=== PATIENT | female | born 2000 | race Caucasian/White ===

== ENCOUNTER 2022-02-02 11:05 | Inpatient (IN) | payer OTHER, SELFPAY ==
[2022-02-02] VITALS (19 sets, daily range): BP systolic 92–119; BP diastolic 46–71; PULSE 94–100; RESP 16–18; TEMP 36.3–38.5; O2SAT 76–100; BMI 23.4
--- NOTE | ~2022-02-02 | US_ITS ---
EXAMINATION: US renal BI DATE: 02/03/2022 09:49 INDICATION: right renal abscess TECHNIQUE: Multiple ultrasound grayscale images of the kidneys were obtained. COMPARISON: CT abdomen and pelvis 02/02/2022 FINDINGS: The right kidney measures 12.4 x 4.7 x 5.9 cm. The left kidney measures total 0.3 x 3.6 x 5.0 cm. The kidneys demonstrate normal parenchymal echogenicity. 1.4 cm slightly irregular, slightly heterogeneo us cystic mass in the mid right kidney. There is no hydronephrosis. The bladder is partially filled w ith echogenic debris. IMPRESSION: 1. 1.4 cm complex cystic right midpole mass, corresponding to the reported parenchymal abscess in th e prior CT. 2. Urinary bladder debris may represent proteinaceous, crystalline, or hemorrhagic material. Reviewed, dictated and finalized at location K. IMPRESSION: 1. 1.4 cm complex cystic right midpole mass, corresponding to the reported par enchymal abscess in the prior CT. 2. Urinary bladder debris may represent proteinaceous, crystalline, or hemorrha gic material.
--- NOTE | ~2022-02-02 | CT_ITS ---
EXAMINATION: CT abdomen pelvis w con INDICATION: Right flank pain, fever TECHNIQUE: Computed tomographic images of the abdomen and pelvis were obtained after the administrati on of 100 cc of Omnipaque 300 intravenous contrast. The dose-length product (DLP) was 208.80 mGy-cm. Automated exposure control and iterative reconstruction technique were employed. COMPARISON: None available FINDINGS: The lung bases are clear. The heart size is normal. The liver, pancreas, and adrenal glands are normal. The gallbladder is contracted. There is a 14.5 x 11.5 cm cystic lesion of the spleen. Th ere are multiple patchy areas of decreased perfusion in the right kidney. There is a 1.5 cm centrally hypoattenuating mass like area in the right mid kidney. The left kidney is unremarkable. No patholog ically enlarged abdominal or pelvic lymph nodes are identified. An IUD is in expected position. There is no free intraperitoneal gas or evidence of bowel obstruction. A moderate volume of colonic stool is present. There is a small volume of pelvic ascites. IMPRESSION: 1. Findings consistent with pyelonephritis of the right kidney with 1.5 cm parenchymal abscess of the mid kidney. 2. 14.5 cm cystic lesion of the spleen. Although probable splenic cyst or other benign lesion, consid er nonemergent surgical evaluation given the size of the mass. Reviewed, dictated and finalized at location L. IMPRESSION: 1. Findings consistent with pyelonephritis of the right kidney with 1.5 cm pare nchymal abscess of the mid kidney. 2. 14.5 cm cystic lesion of the spleen. Although probable splenic cyst or other benign lesion, consider nonemergent surgical evaluation given the size of the mass.
--- NOTE | ~2022-02-02 | XR_ITS ---
EXAMINATION: XR chest 1V portable DATE: 02/05/2022 01:31 INDICATION: Left chest pain. TECHNIQUE: A single frontal view of the chest was obtained. COMPARISON: CT abdomen and pelvis 02/02/2022 FINDINGS: The chest demonstrates clear lungs without pneumonia, pleural effusion, or pneumothorax. Th e heart size is normal. IMPRESSION: 1. No acute cardiopulmonary disease. Reviewed, dictated and finalized at location A.
[2022-02-02 11:56] LABS: Basophils Percent Auto 0.1 % (0.2-1.2); Hematocrit 33.1 % (37.0-47.0); Hemoglobin 11.2 g/dL (12.0-15.0); Immature Granulocyte Absolute 0.08 K/mm3 (0.00-0.031); Immature Granulocyte Percent A 0.6 % (0-0.5); Lymphocytes Absolute Auto 0.63 K/mm3 (0.9-3.2); Lymphocytes Percent Auto 4.4 % (18.3-44.2); Mean Corpuscular HGB Conc 33.8 g/dl (32-36); Mean Corpuscular Hemoglobin 29.2 pg (26-34); Mean Corpuscular Volume 86.4 fl (80-100); Mean Platelet Volume 9.5 fl (7.4-10.4); Monocytes Absolute Auto 0.9 K/mm3 (0.1-0.6); Monocytes Percent Auto 6.6 % (2.6-8.5); Neutrophils Absolute Auto 12.7 K/mm3 (1.3-6.7); Neutrophils Percent Auto 88.3 % (45.5-73.1); Platelet Count Result 162 k/mm3 (150-375); Red Blood Count 3.83 M/mm3 (4.2-5.4); Red Cell Distribution Width 14.8 % (11.5-14.5); White Blood Count 14.3 K/mm3 (4.5-10.0)
--- NOTE | 2022-02-02 11:57 | ED.GENADULT ---
HPI - General Adult General Chief complaint: Urogenital-Female Stated complaint: UTI on Saturday - febrile at 104 Time Seen by Provider: 02/02/22 11:19 Source: RN notes reviewed History of Present Illness HPI narrative: Patient presents emergency department from home for UTI. Patient states that she has been having dysuria for the past several days she gone to her PCP 2 days ago was diagnosed with a UTI and was placed on Macrobid which she has been taking. She states that today she had a temperature up to 104 ?F and she did take Tylenol this morning states is associated with pain in the right flank. She denies any abdominal pain nausea or vomiting or any other symptoms has been taking antibiotic as prescribed Related Data Allergies Allergy/AdvReac Type Severity Reaction Status Date / Time No Known Allergies Allergy Verified 02/02/22 11:06 Review of Systems Review of Systems: Gen. reports fever Eyes: Denies eye pain or visual change ENT: Denies congestion Respiratory: Denies shortness of breath or cough CV: Denies chest pain or palpitations repeat reports right flank pain GI: Denies abdominal pain nausea, emesis or diarrhea reports UTI Musculoskeletal: Denies back pain or muscle pain Neuro: Denies numbness, tingling, weakness or focal weakness Skin: Denies rash Except as documented, all other systems reviewed and negative [facility] Past Medical History Medical History (Updated 02/02/22 @ 14:46 by Kody Abreu DO) Patient denies significant medical history Social History Social History (Updated 02/02/22 @ 11:59 by Kody Abreu DO) Smoking status: Never smoker Exam Narrative: APPEARANCE: No acute distress, nontoxic, resting in bed EYES: EOMI HEENT: Normocephalic, atraumatic, OMM RESPIRATORY: No respiratory distress Clear to auscultation bilaterally with no rhonchi wheezing or rales. CARDIOVASCULAR: Regular rate and rhythm without murmurs rubs or gallops. ABDOMINAL: Soft, nontender, nondistended, no rebound or guarding her right flank tenderness MUSCULOSKELETAl: Moves all extremities. No clubbing, cyanosis or edema. NEURO: Awake and alert. Following commands, speech normal, no focal deficits SKIN:: Warm, dry. No rashes lesions or abrasions PSYCHIATRIC: Normal affect/mood, Course Course Emergency Course: Discussed with Dr. Petty presentation work-up states patient may be started on Rocephin agrees to consult Discussed with SEAN Augustine for Dr. Wolf agrees with admission Discussed with patient and family results of workup and diagnosis. Discussed need for admission. Patient and family understand and agree to current treatment plan Vital Signs Vital signs: Vital Signs Temperature 97.4 F L 02/02/22 11:12 Pulse Rate 100 02/02/22 11:12 Respiratory Rate 18 02/02/22 11:12 Blood Pressure 117/71 02/02/22 11:12 Pulse Oximetry 100 02/02/22 11:12 Temperature 99.3 F 02/02/22 14:34 Pulse Rate 100 02/02/22 11:12 Respiratory Rate 18 02/02/22 11:12 Blood Pressure 117/71 02/02/22 11:12 Pulse Oximetry 100 02/02/22 11:12 Medical Decision Making Vital Signs Vital Signs: Vital Signs Temperature 97.4 F L 02/02/22 11:12 Pulse Rate 100 02/02/22 11:12 Respiratory Rate 18 02/02/22 11:12 Blood Pressure 117/71 02/02/22 11:12 Pulse Oximetry 100 02/02/22 11:12 Temperature 99.3 F 02/02/22 14:34 Pulse Rate 100 02/02/22 11:12 Respiratory Rate 18 02/02/22 11:12 Blood Pressure 117/71 02/02/22 11:12 Pulse Oximetry 100 02/02/22 11:12 Lab Data Result diagrams: 02/02/22 11:51 02/02/22 11:51 Labs: Lab Results 02/02/22 02/02/22 02/02/22 Range/Units 11:51 11:51 11:51 WBC 14.3 H (4.5-10.0) K/mm3 RBC 3.83 L (4.2-5.4) M/mm3 Hgb 11.2 L (12.0-15.0) g/dL Hct 33.1 L (37.0-47.0) % MCV 86.4 (80-100) fl MCH 29.2 (26-34) pg MCHC 33.8 (32-36) g/dl RDW 14.8 H (11.5-14.5)
[2022-02-02 12:07] LABS: Alanine Aminotransferase 15 U/L (6-35); Albumin Level 4.2 g/dL (3.5-5.1); Alkaline Phosphatase 49 U/L (38-126); Anion Gap 12 mmol/L (8-16); Aspartate Amino Transferase 22 U/L (14-36); Bilirubin,Total 0.2 mg/dL (0.2-1.3); Blood Urea Nitrogen 14 mg/dL (7-17); Calcium 9.6 mg/dL (8.4-10.2); Carbon Dioxide 19 mmol/L (22-30); Chloride 105 mmol/L (98-107); Estimated CRCL calculation 91 ml/min; Estimated Glomerular Filt Rate > 60; Glucose 181 mg/dL (65-110); Potassium 3.8 mmol/L (3.4-5.0); Sodium 136 mmol/L (137-145)
[2022-02-02 12:30] LABS: Platelet Estimate Adequate (Adequate)
[2022-02-02 12:31] LABS: Poikilocytosis 1+ (NORMAL)
[2022-02-02 12:31] LABS: Appearance Urine Clear (Clear); Bilirubin Urine Negative (Negative); Color Urine Yellow (Yellow); Glucose Urine UA Trace mg/dL (Negative); Ketones Urine Negative (Negative); Leukocyte Esterase Ur Negative LEU/UL (Negative); Nitrate Urine Negative (Negative); Protein Urine Negative (Negative); Specific Grav Ur <= 1.005 (1.001-1.035); Urobilinogen Urine 0.2 mg/dL (<2.0)
[2022-02-02 12:39] LABS: Bacteria Urine Trace /hpf; RBC Urine 0-2 /hpf (0-2); Squamous Epithelial Cell Urine Rare /hpf (Few); WBC Urine 0-3 /hpf
[2022-02-02 12:42] LABS: Add Urine Microscopic? YES; Blood Urine Trace-Intact (Negative)
[2022-02-02] MEDS: SODIUM CHLORIDE 0.9% IV 1,000 ML 999 ML IV CONT (12:42)
[2022-02-02 15:02] LABS: SARS-CoV-2 RNA PCR Negative
--- NOTE | 2022-02-02 15:15 | PM.IMHP ---
H&P: HPI History of Present Illness Date/Time: 02/02/22 15:15 Chief Complaint: Fever. Narrative: This is a very pleasant 21-year-old female who presented to the ED from home for evaluation of fever. She developed UTI symptoms the first week of January to include dysuria, urgency, frequency, hesitancy, and malodorous urine. She started drinking cranberry juice and her symptoms seemed to improve a bit though they have returned intermittently. This week she developed aching, right sided flank pain and a fever so she went to see her doctor and she was prescribed nitrofurantoin for a UTI. Despite taking her antibiotics, her symptoms have not improved and she continues to spike fevers up to [address] of the abdomen and pelvis today showed evidence of pyelonephritis and a 1.5 cm parenchymal abscess of the mid kidney and she is being admitted in this setting for further treatment and consultation with urology. Currently she is resting comfortably but she feels as though her fevers starting to return and she is complaining of some chills. Review of Systems Review of Systems: Twelve systems were reviewed. No sinus congestion, rhinorrhea, otalgia, or odynophagia. No cough or shortness of breath. She denies sick contacts. No chest pain. No vomiting. No diarrhea. Except as documented, all other systems were reviewed and are negative. [facility] Past Medical History Medical History (Updated 02/02/22 @ 23:27 by Fawn Godfrey PA-C) COVID-19 (10/2021) Depression with anxiety Urinary tract infection Surgical History Surgical History History of craniotomy (03/2001) Excision of benign brain tumor. History of right breast biopsy Family History Family History Other No significant family history Social History Social History Social History: Surrogate medical decision maker: Adrian Hawkins, father. Code status: Full code. Smoking status: Current every day smoker Tobacco type: e-cigarettes/vaping Alcohol intake: current Drinks per week: 1 Substance use: never Additional living arrangements comments: Lives with parents in [place]. Additional occupation/education comments: Student at [employer]. 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 Spiritual care concerns: No Meds Home Medications and Allergies Home Medications Medication Instructions Recorded Confirmed Type citalopram 40 mg tablet 40 mg PO HS 02/02/22 02/02/22 History Allergies Allergy/AdvReac Type Severity Reaction Status Date / Time No Known Allergies Allergy Verified 02/02/22 16:46 Vital Signs Vital Signs - 24 hr 02/02/22 11:12 02/02/22 14:26 02/02/22 14:34 Temperature 97.4 F L 99.6 F 99.3 F Pulse Rate 100 Respiratory Rate 18 Blood Pressure 117/71 Pulse Oximetry 100 Exam Narrative: General: Moderately ill appearing female supine in bed. Weight: 54.5 kg. BMI: 21.3 HEENT: PERRL, EOMI. Conjunctivae anicteric. Tacky mucous membranes. Neck: Supple. Respiratory: Lungs are clear to auscultation bilaterally. Cardiovascular: Tachycardic with normal S1 S2. Gastrointestinal: Abdomen is soft and nondistended with positive bowel sounds. Positive right sided CVA tenderness. Skin: Hot and moist. Extremities: No cyanosis, clubbing, or edema. Radial and pedal pulses intact. Neurological: Alert. Cranial nerves 2-12 are grossly intact. No gross focal deficits to casual conversation. Psychiatric: Pleasant and cooperative with normal mood and affect. Judgment and insight intact. H&P: Results Labs Labs: Short CBC 02/02/22 Range/Units 11:51 WBC 14.3 H (4.5-10.0) K/mm3 Hgb 11.2 L (12.0-15.0) g/dL Hct 33.1 L (37.0-47.0) % Plt Count 162 (150-375) k/mm3 [facility] 02/02/22 11:51 Sodium 136 L Potassium 3.8 Chloride 105 Carbon Dioxide 19 L B
--- NOTE | 2022-02-02 15:44 | WPDURCON ---
Assessment and Plan Assessment and plan (1) Sepsis: Code(s): A41.9 - Sepsis, unspecified organism Status: Acute Assessment and Plan: Continue Ceftriaxone, tailor to culture results. Results of culture are pending. (2) Pyelonephritis of right kidney: Code(s): N12 - Tubulo-interstitial nephritis, not specified as acute or chronic Status: Acute Assessment and Plan: Will monitor from a distance, no need to drain her renal abscess at this time. Will re-image tomorrow with DEYVI, will monitor fevers, if no improvement, she may need a drainage of her renal abscess in interventional radiology. Push fluids, initiate supportive care, give Tylenol for fevers. Urology Consult Note HPI Date Seen: 02/02/22 Time Seen: 15:44 Requesting Physician: Marshall Wolf MD Primary Care Provider: Holly Murphy MD Consult Narrative Reason for consult: Right Renal Abscess Narrative: Mimi Hawkins is a 21 year old female who is present in the ER for c/o ongoing right flank pain that radiates to the RLQ, that is accompanied by fevers of as high as 104. She also states that she was started on Macrobid for a UTI that she began having symptoms for 3 weeks ago. The symptoms consisted of dysuria, frequency, nausea, vomiting and urgency. She had a WBC of 14.3, creatinine of 0.70, fever of 102 reportedly when she got here to the ER today. She has not had a history of recurrent UTI's and has never seen a urologist before. She has had a CT scan which does show pyelonephritis, right 1.5cm parenchymal abscess of mid kidney. Review of Systems Cardiovascular: Cardiovascular: Denies chest pain Respiratory: Respiratory: Reports no additional respiratory complaints Gastrointestinal: Gastrointestinal: Reports abdominal pain, Reports nausea and Reports vomiting Genitourinary: Genitourinary: Denies hematuria, Reports nocturia, Reports dysuria, Reports pelvic pain, Reports flank pain and Reports urinary urgency PMFSH Past Medical History Medical History Depression with anxiety Urinary tract infection Surgical History Surgical History History of craniotomy (03/2001) Excision of benign brain tumor. History of right breast biopsy Family History Family History Other No significant family history Social History Social History Social History: Surrogate medical decision maker: Adrian Hawkins, father. Code status: Full code. Smoking status: Never smoker Alcohol intake: never Substance use: never Additional living arrangements comments: Lives with parents in [place]. Additional occupation/education comments: Student at [employer]. 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 Meds Home Medications and Allergies Allergies Allergy/AdvReac Type Severity Reaction Status Date / Time No Known Allergies Allergy Verified 02/02/22 11:06 Vital Signs Vital Signs - 24 hr 02/02/22 11:12 02/02/22 14:26 02/02/22 14:34 Temperature 97.4 F L 99.6 F 99.3 F Pulse Rate 100 Respiratory Rate 18 Blood Pressure 117/71 Pulse Oximetry 100 Exam Const: General: comfortable Resp: Effort & Inspection: normal respiratory effort Cardio: Rate: regular rate GI: GI Palp: Yes Soft to palpation and Yes Tenderness to palpation present (GI) (RLQ) : Other: Right Flank Pain upon palpation Extrem: General: no edema Results Labs CBC & Chem 7: 02/02/22 11:51 02/02/22 11:51 Labs: Short CBC 02/02/22 Range/Units 11:51 WBC 14.3 H (4.5-10.0) K/mm3 Hgb 11.2 L (12.0-15.0) g/dL Hct 33.1 L (37.0-47.0) % Plt Count 162 (150-375) k/mm3 [facility] 02/02/22 11:51 Sodium 136 L Potassium 3.8 Chloride 105 Carbon Dioxide 19 L BUN 14 Creat
[2022-02-02] MEDS: SODIUM CHLORIDE 0.9% IV 1,000 ML 125 ML IV CONT (17:08)
[2022-02-02] MEDS: CITALOPRAM HYDROBROMIDE 20 MG TABLET 40 MG PO (21:24)
[2022-02-03] VITALS (12 sets, daily range): BP systolic 96–110; BP diastolic 50–59; PULSE 77–118; RESP 14–18; TEMP 36.1–39.3; O2SAT 99–100
[2022-02-03] MEDS: SODIUM CHLORIDE 0.9% IV 1,000 ML 100 ML IV CONT ×2 (01:34→15:31)
[2022-02-03 06:26] LABS: Basophils Percent Auto 0.2 % (0.2-1.2); Hematocrit 31.2 % (37.0-47.0); Hemoglobin 10.2 g/dL (12.0-15.0); Immature Granulocyte Absolute 0.06 K/mm3 (0.00-0.031); Immature Granulocyte Percent A 0.5 % (0-0.5); Lymphocytes Absolute Auto 1.07 K/mm3 (0.9-3.2); Lymphocytes Percent Auto 9.6 % (18.3-44.2); Mean Corpuscular HGB Conc 32.7 g/dl (32-36); Mean Corpuscular Hemoglobin 29.2 pg (26-34); Mean Corpuscular Volume 89.4 fl (80-100); Mean Platelet Volume 9.9 fl (7.4-10.4); Monocytes Absolute Auto 1.1 K/mm3 (0.1-0.6); Monocytes Percent Auto 10.2 % (2.6-8.5); Neutrophils Absolute Auto 8.9 K/mm3 (1.3-6.7); Neutrophils Percent Auto 79.5 % (45.5-73.1); Platelet Count Result 132 k/mm3 (150-375); Red Blood Count 3.49 M/mm3 (4.2-5.4); Red Cell Distribution Width 15.1 % (11.5-14.5); White Blood Count 11.1 K/mm3 (4.5-10.0)
[2022-02-03 06:41] LABS: Alanine Aminotransferase 12 U/L (6-35); Albumin Level 3.5 g/dL (3.5-5.1); Alkaline Phosphatase 47 U/L (38-126); Anion Gap 6 mmol/L (8-16); Aspartate Amino Transferase 20 U/L (14-36); Bilirubin,Total 0.3 mg/dL (0.2-1.3); Blood Urea Nitrogen 8 mg/dL (7-17); Calcium 7.9 mg/dL (8.4-10.2); Carbon Dioxide 21 mmol/L (22-30); Chloride 110 mmol/L (98-107); Estimated CRCL calculation 91 ml/min; Estimated Glomerular Filt Rate > 60; Glucose 110 mg/dL (65-110); Potassium 3.9 mmol/L (3.4-5.0); Sodium 137 mmol/L (137-145)
[2022-02-03 06:59] LABS: Hemoglobin A1C 4.9 % (<5.7)
--- NOTE | 2022-02-03 08:37 | PM.IMPN ---
Progress Note: A&P Assessment and Plan (1) Sepsis: Code(s): A41.9 - Sepsis, unspecified organism Status: Acute Assessment and Plan: - No longer meeting sepsis criteria. - Continue IV abx pending urine culture. - US results from this morning pending. - Urology evaluated and recommended no reason to drain Abscess at this time and they are following and managing. - Continue to monitor labs and vital signs. (2) Abscess of right kidney: Code(s): N15.1 - Renal and perinephric abscess Status: Acute Assessment and Plan: - See problem #1. (3) Pyelonephritis of right kidney: Code(s): N12 - Tubulo-interstitial nephritis, not specified as acute or chronic Status: Acute Assessment and Plan: - See problem #1 (4) Splenic mass: Code(s): R16.1 - Splenomegaly, not elsewhere classified Status: Acute Assessment and Plan: - 14.5 cm cystic lesion of the spleen noted on CT today. - Continues to be asymptomatic. - Dr. Ozuna and he would like to see her in follow-up as an outpatient. (5) Depression with anxiety: Code(s): F41.8 - Other specified anxiety disorders Status: Chronic Assessment and Plan: - Chronic only. Continue home medication. Additional Plan Barrier to discharge: Results of urine culture, US performed today and blood culture and evaluation and further recommendations by Urology. Time Spent With Patient Time: 15 minutes Subjective Date/time seen: 02/03/22 08:30 Interval history: This very pleasant 21-year-old female was examined at the bedside today in interval assessment status post being admitted for acute right-sided pyelonephritis with abscess formation. She is having ultrasound of her kidney to get better visualization this morning and we are awaiting consult from Dr. Petty. Patient endorses that she feels a little bit better this morning, however she is still having pain on the right side and right flank. She denies any chest pain, dyspnea, nausea, vomiting, diarrhea or overt dysuria, urinary urgency, burning, frequency or hematuria. Urine culture is still pending. Review of Systems Review of Systems: Twelve point review of systems was completed. All systems reviewed & are unremarkable except as noted in HPI and below Exam Const: General: comfortable and no acute distress HENMT: Ears: TM's normal bilaterally General nose exam: Normal nares present and no epistaxis Mouth: Yes moist mucous membranes Eyes: General: appearance normal, both eyes and all related structures Sclera: sclerae normal and normal sclerae Pupils: Equal, round and reactive pupils present EOM: EOMs intact bilaterally Neck: Neck: supple and no JVD Thyroid: thyroid normal Carotids: no bruits Lymphatic: lymphadenopathy not noted Other: Patient freely and equally moves her neck in all directions. Resp: Effort & Inspection: normal respiratory effort Auscultation: clear to auscultation bilaterally Cardio: Rate: regular rate Rhythm: regular rhythm Heart sounds: no gallops, no murmurs and no rubs GI: Inspection: non-distended GI Palp: Yes Soft to palpation, Yes Tenderness to palpation present (GI) (Right flank), No Guarding due to palpation present (GI) and No Hernia present Auscultation: normal bowel sounds Skin: General skin exam: normal color and no rashes or lesions noted Lesions: no lesions noted Rashes: no rashes noted Wounds: no wounds Neuro: General: gait normal Speech: normal speech Motor exam (neuro): 5/5 motor strength present throughout Sensory Exam: normal sensation Extrem: General: normal to inspection, no edema and no pedal edema Other: Feeling tingly moves all extremities well without any deficits. Psych: Mental Status: mental status grossly normal Affect: normal affect Objective Data Vital Signs Vital Signs: Vital Signs - 24 hr 02/02/22 11:12 02/02/22 14:26 02/02/22 14:34 Temperature 97.4 F
[2022-02-03] MEDS: ONDANSETRON INJ 4 MG/2 ML VIAL IV PUSH (12:51)
[2022-02-03] MEDS: CITALOPRAM HYDROBROMIDE 20 MG TABLET 40 MG PO (20:21)
[2022-02-04] VITALS (9 sets, daily range): BP systolic 100–113; BP diastolic 50–67; PULSE 80–89; RESP 14–18; TEMP 36.2–37.4; O2SAT 98–100
[2022-02-04] MEDS: SODIUM CHLORIDE 0.9% IV 1,000 ML 100 ML IV CONT ×3 (02:18→23:25)
[2022-02-04 06:18] LABS: Basophils Percent Auto 0.2 % (0.2-1.2); Eosinophils Percent Auto 0.1 % (0-4.4); Hematocrit 28.7 % (37.0-47.0); Hemoglobin 9.6 g/dL (12.0-15.0); Immature Granulocyte Absolute 0.03 K/mm3 (0.00-0.031); Immature Granulocyte Percent A 0.4 % (0-0.5); Immature Platelet Fraction Pct 2.8 % (0.9-11.2); Lymphocytes Absolute Auto 1.62 K/mm3 (0.9-3.2); Lymphocytes Percent Auto 18.9 % (18.3-44.2); Mean Corpuscular HGB Conc 33.4 g/dl (32-36); Mean Corpuscular Volume 86.7 fl (80-100); Mean Platelet Volume 10.1 fl (7.4-10.4); Monocytes Absolute Auto 1.3 K/mm3 (0.1-0.6); Monocytes Percent Auto 15.1 % (2.6-8.5); Neutrophils Absolute Auto 5.6 K/mm3 (1.3-6.7); Neutrophils Percent Auto 65.3 % (45.5-73.1); Platelet Count Result 131 k/mm3 (150-375); Red Blood Count 3.31 M/mm3 (4.2-5.4); Red Cell Distribution Width 14.9 % (11.5-14.5); White Blood Count 8.6 K/mm3 (4.5-10.0)
[2022-02-04 06:33] LABS: Alanine Aminotransferase 34 U/L (6-35); Albumin Level 3.3 g/dL (3.5-5.1); Alkaline Phosphatase 48 U/L (38-126); Anion Gap 7 mmol/L (8-16); Aspartate Amino Transferase 38 U/L (14-36); Bilirubin,Total 0.2 mg/dL (0.2-1.3); Blood Urea Nitrogen 5 mg/dL (7-17); Calcium 8.2 mg/dL (8.4-10.2); Carbon Dioxide 22 mmol/L (22-30); Chloride 109 mmol/L (98-107); Estimated CRCL calculation 104 ml/min; Estimated Glomerular Filt Rate > 60; Glucose 107 mg/dL (65-110); Potassium 3.8 mmol/L (3.4-5.0); Sodium 138 mmol/L (137-145)
[2022-02-04] MEDS: KETOROLAC 30 MG/ML VIAL (*BKC) IV PUSH ×2 (11:15→18:27)
--- NOTE | 2022-02-04 12:14 | PM.IMPN ---
Progress Note: A&P Assessment and Plan (1) Sepsis: Code(s): A41.9 - Sepsis, unspecified organism Status: Acute Assessment and Plan: - No longer meeting sepsis criteria. - Continue IV abx of rocephin. - US results from this morning pending. - Urology evaluated and recommended no reason to drain Abscess at this time and they are following and managing. - Continue to monitor labs and vital signs. - Urine culture grew out G-bacilli. Pending identification and sensitivity. (2) Abscess of right kidney: Code(s): N15.1 - Renal and perinephric abscess Status: Acute Assessment and Plan: - See problem #1. (3) Pyelonephritis of right kidney: Code(s): N12 - Tubulo-interstitial nephritis, not specified as acute or chronic Status: Acute Assessment and Plan: - See problem #1 (4) Splenic mass: Code(s): R16.1 - Splenomegaly, not elsewhere classified Status: Acute Assessment and Plan: - 14.5 cm cystic lesion of the spleen noted on CT today. - Continues to be asymptomatic. - Dr. Ozuna and he would like to see her in follow-up as an outpatient. - Pt. is tender in LUQ today. Will check Lipase. - Otherwise continue current POC. (5) Depression with anxiety: Code(s): F41.8 - Other specified anxiety disorders Status: Chronic Assessment and Plan: - Chronic only. Continue home medication. Time Spent With Patient Time: 20 mintues. Subjective Date/time seen: 02/04/22 0930 This pleasant female patient was evaluated at the bedside today in interval assessment. She has complaints today of pain in the LUQ and RUQ of the abdomen with occasional nausea when she spikes a fever, in which she did twice overnight. She is being followed by Urology and is still receiving her abx of Rocephin Q24 hrs. This will be her second dose today. She has no other symptoms to report today such as CP, Dyspnea, Vomiting, diarrhea, and no overt urinary complaints. Her urine culture returned with G-bacilli present and identification and sensitivity is still pending. US was performed yesterday and demonstrated a complex cyst on the right kidney. At the request of the patient I called and spoke with her father, Adrian at [phone] with updates on the plan of care and he verbalized understanding and would like to be notified tomorrow as well if possible before 0830 as to the plans of continuation of care. In addition, he stated that her mother would be back in town tomorrow and her name is Jaye and her number is [phone]. Pt. is resting comfortably at this time. Review of Systems Review of Systems: All systems reviewed & are unremarkable except as noted in HPI and below Exam Const: General: comfortable and no acute distress HENMT: Ears: TM's normal bilaterally General nose exam: Normal nares present and no epistaxis Mouth: Yes moist mucous membranes Eyes: General: appearance normal, both eyes and all related structures Sclera: sclerae normal and normal sclerae Pupils: Equal, round and reactive pupils present EOM: EOMs intact bilaterally Neck: Neck: supple and no JVD Thyroid: thyroid normal Carotids: no bruits Lymphatic: lymphadenopathy not noted Other: Patient freely and equally moves her neck in all directions. Resp: Effort & Inspection: normal respiratory effort Auscultation: clear to auscultation bilaterally Cardio: Rate: regular rate Rhythm: regular rhythm Heart sounds: no gallops, no murmurs and no rubs GI: Inspection: non-distended GI Palp: Yes Soft to palpation and Yes Tenderness to palpation present (GI) (LUQ) Auscultation: normal bowel sounds Skin: General skin exam: normal color and no rashes or lesions noted Lesions: no lesions noted Rashes: no rashes noted Wounds: no wounds Neuro: General: gait normal Cranial nerves: Yes Equal, round and reactive pupils present Speech: normal speech Motor exam (neuro): 5/5 motor strength present
[2022-02-04 12:50] LABS: Lipase 133 U/L (23-300)
--- NOTE | 2022-02-04 15:03 | WPDUROPN2 ---
Progress Note: A&P Assessment and Plan (1) Pyelonephritis of right kidney: Code(s): N12 - Tubulo-interstitial nephritis, not specified as acute or chronic Status: Acute Assessment and Plan: Remains hemodynamically stable. Afebrile with normal white count. Urine culture with pansensitive Klebsiella. May consider switching to oral antibiotics tomorrow with possible discharge and follow-up in 2-3 weeks (2) Abscess of right kidney: Code(s): N15.1 - Renal and perinephric abscess Status: Acute Assessment and Plan: Remains stable and improving clinically. If changes course will need radiologic imaging sooner and possible drainage of the abscess. Subjective Subjective Date/Time Seen: 02/04/22 15:03 Principal diagnosis: Right renal abscess 1.5 cm Interval history: Mimi is feeling much better at this time. She remains afebrile with a normal white count. Her urine culture showing [id number] Klebsiella which is pansensitive. Renal ultrasound really shows no change at this time the size of the abscess. Review of Systems Review of Systems: All systems reviewed & are unremarkable except as noted in HPI and below Exam Const: General: cooperative, comfortable and no acute distress Resp: Effort & Inspection: normal respiratory effort Cardio: Rate: regular rate Rhythm: regular rhythm Objective Data Vital Signs Vital Signs: Vital Signs - 24 hr 02/03/22 15:33 02/03/22 20:42 02/03/22 21:10 Temperature 37.0 C 37.7 C H 38.8 C H Pulse Rate Respiratory Rate Blood Pressure Pulse Oximetry Oxygen Delivery 02/03/22 22:00 02/03/22 22:55 02/03/22 19:50 Temperature 37.3 C 37.9 C H Pulse Rate 93 Respiratory Rate 16 Blood Pressure 110/55 L Pulse Oximetry 100 Oxygen Delivery Room Air 02/04/22 02:19 02/04/22 06:00 02/04/22 08:30 Temperature 37.2 C 36.6 C 36.9 C Pulse Rate 86 Respiratory Rate 14 Blood Pressure 100/50 L Pulse Oximetry 99 Oxygen Delivery 02/04/22 09:17 02/04/22 08:00 Temperature Pulse Rate 86 Respiratory Rate 14 Blood Pressure Pulse Oximetry 99 99 Oxygen Delivery Room Air Room Air Intake/Output Intake/Output: Intake & Output 02/01/22 02/02/22 02/03/22 02/04/22 23:59 23:59 23:59 23:59 Intake Total 1340 4680 3230 Balance 1340 4680 3230 Meds/Results Medications: Active Medications Generic Name Dose Route Start Last Admin Trade Name Freq PRN Reason Stop Dose Admin Citalopram Hydrobromide 40 mg 02/02/22 21:00 02/03/22 20:21 Citalopram Hydrobromide 20 Mg Tablet PO 40 mg HS MARTY Administration Ceftriaxone Sodium/Dextrose 1 gm in 50 mls @ 100 mls/hr 02/03/22 15:00 02/04/22 14:26 Rocephin 1 Gm/D5w 50 Ml IVPB 100 mls/hr Q24H MARTY Administration Sodium Chloride 1,000 mls @ 100 mls/hr 02/02/22 14:35 02/04/22 12:32 Normal Saline Iv IV CONT 100 mls/hr .Q10H MARTY Administration Acetaminophen 1,000 mg in 100 mls @ 400 mls/hr 02/03/22 20:25 02/03/22 20:57 Ofirmev 1,000 Mg Ivpb IVPB 02/04/22 20:24 Infused Q6H PRN Infusion prn pain 1-3 and/or fever Ketorolac Tromethamine 30 mg 02/04/22 08:16 02/04/22 11:15 Ketorolac 30 Mg/Ml Vial (*Bkc) IV PUSH 30 mg Q6H PRN Administration Pain Rated 4-6 Ondansetron HCl 4 mg 02/03/22 12:42 02/03/22 12:51 Ondansetron Inj 4 Mg/2 Ml Vial IV PUSH 4 mg Q4H PRN Administration Nausea And Vomiting Radiology Results: ITS Impressions Abdomen/Pelvis CT 02/02/22 13:27 IMPRESSION: 1. Findings consistent with pyelonephritis of the right kidney with 1.5 cm parenchymal abscess of the mid kidney. 2. 14.5 cm cystic lesion of the spleen. Although probable splenic cyst or other benign lesion, consider nonemergent surgical evaluation given the size of the mass. Renal Ultrasound 02/03/22 18:04 IMPRESSION: 1. 1.4 cm complex cystic right midpole mass, corresponding to the reported parenchymal abscess in the
[2022-02-04] MEDS: CITALOPRAM HYDROBROMIDE 20 MG TABLET 40 MG PO (20:05)
[2022-02-05] MEDS: KETOROLAC 30 MG/ML VIAL (*BKC) IV PUSH (01:24)
[2022-02-05 06:00] VITALS: BP 124/83; PULSE 68; RESP 16; TEMP 36.1; O2SAT 99
--- NOTE | 2022-02-05 06:28 | WPDUROPN2 ---
Progress Note: A&P Assessment and Plan (1) Abscess of right kidney: Code(s): N15.1 - Renal and perinephric abscess Status: Acute Assessment and Plan: Feeling better, afebrile and serum WBC improved. Urine with Klebsiella / blood cultures neg. Home on 2 weeks abx. (Omnicef or Cipro [if no chance of ]) Subjective Subjective Date/Time Seen: 02/05/22 06:28 Atypical chest pain with inspiration last night, now resolved Review of Systems Cardiovascular: Cardiovascular: Denies chest pain, Denies lightheadedness, Denies palpitations and Denies dyspnea Respiratory: Respiratory: Denies dyspnea Gastrointestinal: Gastrointestinal: Denies diarrhea, Denies nausea and Denies vomiting Genitourinary: Genitourinary: Denies hematuria and Denies dysuria Endocrine: Endocrine: Denies palpitations Exam Const: General: no acute distress Resp: Effort & Inspection: normal respiratory effort GI: Inspection: non-distended GI Palp: No abdominal tenderness and No Guarding due to palpation present (GI) Auscultation: normal bowel sounds Objective Data Vital Signs Vital Signs: Vital Signs - 24 hr 02/04/22 08:30 02/04/22 09:17 02/04/22 08:00 Temperature 98.5 F Pulse Rate 86 Respiratory Rate 14 Blood Pressure Pulse Oximetry 99 99 Oxygen Delivery Room Air Room Air 02/04/22 14:00 02/04/22 18:27 02/04/22 18:55 Temperature 97.2 F L 99.3 F 98.9 F Pulse Rate 89 Respiratory Rate 16 Blood Pressure 113/65 Pulse Oximetry 100 Oxygen Delivery 02/04/22 21:48 02/04/22 20:15 Temperature 97.4 F L Pulse Rate 80 Respiratory Rate 18 Blood Pressure 111/67 Pulse Oximetry 98 Oxygen Delivery Room Air Intake/Output Intake/Output: Intake & Output 02/02/22 02/03/22 02/04/22 02/05/22 23:59 23:59 23:59 23:59 Intake Total 1340 4680 5520 Balance 1340 4680 5520 Meds/Results Medications: Active Medications Generic Name Dose Route Start Last Admin Trade Name Freq PRN Reason Stop Dose Admin Citalopram Hydrobromide 40 mg 02/02/22 21:00 02/04/22 20:05 Citalopram Hydrobromide 20 Mg Tablet PO 40 mg HS MARTY Administration Ceftriaxone Sodium/Dextrose 1 gm in 50 mls @ 100 mls/hr 02/03/22 15:00 02/04/22 15:00 Rocephin 1 Gm/D5w 50 Ml IVPB Infused Q24H MARTY Infusion Sodium Chloride 1,000 mls @ 100 mls/hr 02/02/22 14:35 02/04/22 23:25 Normal Saline Iv IV CONT 100 mls/hr .Q10H MARTY Administration Ketorolac Tromethamine 30 mg 02/04/22 08:16 02/05/22 01:24 Ketorolac 30 Mg/Ml Vial (*Bkc) IV PUSH 30 mg Q6H PRN Administration Pain Rated 4-6 Ondansetron HCl 4 mg 02/03/22 12:42 02/03/22 12:51 Ondansetron Inj 4 Mg/2 Ml Vial IV PUSH 4 mg Q4H PRN Administration Nausea And Vomiting Radiology Results: ITS Impressions Abdomen/Pelvis CT 02/02/22 13:27 IMPRESSION: 1. Findings consistent with pyelonephritis of the right kidney with 1.5 cm parenchymal abscess of the mid kidney. 2. 14.5 cm cystic lesion of the spleen. Although probable splenic cyst or other benign lesion, consider nonemergent surgical evaluation given the size of the mass. Renal Ultrasound 02/03/22 18:04 IMPRESSION: 1. 1.4 cm complex cystic right midpole mass, corresponding to the reported parenchymal abscess in the prior CT. 2. Urinary bladder debris may represent proteinaceous, crystalline, or hemorrhagic material. Labs Labs: Laboratory Results - last 24 hr 02/04/22 02/04/22 02/04/22 05:36 05:38 05:38 WBC 8.6 RBC 3.31 L Hgb 9.6 L Hct 28.7 L MCV 86.7 MCH 29.0 MCHC 33.4 RDW 14.9 H Plt Count 131 L MPV 10.1 Immature Gran % (Auto) 0.4 Neut % (Auto) 65.3 Lymph % (Auto) 18.9 Gilliam % (Auto) 15.1 H Eos % (Auto) 0.1 Baso % (Auto) 0.2 Lymph # (Auto) 1.62 Gilliam # (Auto) 1.3 H Eos # (Auto) 0.0 Baso # (Auto) 0.0 Abs Immat Gran (auto) 0.03 Absolute Neuts (auto) 5.6
[2022-02-05 06:30] LABS: Basophils Percent Auto 0.3 % (0.2-1.2); Eosinophils Percent Auto 0.5 % (0-4.4); Hemoglobin 9.1 g/dL (12.0-15.0); Immature Granulocyte Absolute 0.01 K/mm3 (0.00-0.031); Immature Granulocyte Percent A 0.2 % (0-0.5); Lymphocytes Percent Auto 36.6 % (18.3-44.2); Mean Corpuscular HGB Conc 33.7 g/dl (32-36); Mean Corpuscular Hemoglobin 29.4 pg (26-34); Mean Corpuscular Volume 87.1 fl (80-100); Mean Platelet Volume 9.9 fl (7.4-10.4); Monocytes Absolute Auto 0.6 K/mm3 (0.1-0.6); Monocytes Percent Auto 9.5 % (2.6-8.5); Neutrophils Absolute Auto 3.2 K/mm3 (1.3-6.7); Neutrophils Percent Auto 52.9 % (45.5-73.1); Platelet Count Result 144 k/mm3 (150-375); Red Cell Distribution Width 15.2 % (11.5-14.5)
[2022-02-05 06:41] LABS: Alanine Aminotransferase 39 U/L (6-35); Albumin Level 3.3 g/dL (3.5-5.1); Alkaline Phosphatase 49 U/L (38-126); Anion Gap 9 mmol/L (8-16); Aspartate Amino Transferase 34 U/L (14-36); Bilirubin,Total 0.3 mg/dL (0.2-1.3); Blood Urea Nitrogen 7 mg/dL (7-17); Calcium 7.9 mg/dL (8.4-10.2); Carbon Dioxide 24 mmol/L (22-30); Chloride 108 mmol/L (98-107); Estimated CRCL calculation 91 ml/min; Estimated Glomerular Filt Rate > 60; Glucose 96 mg/dL (65-110); Potassium 3.9 mmol/L (3.4-5.0); Sodium 141 mmol/L (137-145)
--- NOTE | 2022-02-05 08:03 | PM.DS ---
DS: Admitting Diagnosis Discharge Date 02/05/2022 Admitting Diagnosis Sepsis without shock in the setting of pyelonephritis and renal abscess Splenic mass DS: Discharge Diagnosis Discharge Diagnosis (1) Sepsis: Code(s): A41.9 - Sepsis, unspecified organism Status: Resolved Assessment and Plan: - Urine culture grew out klebsiella pneumonaie, sensitive to Cipro. Pt. has received three doses of Rocephin and is currently without complaint and is stable for discharge at this time. - OK has been given per Urology and Gen Sgy to discharge. She will be referred to Urology for follow up. (2) Abscess of right kidney: Code(s): N15.1 - Renal and perinephric abscess Status: Acute Assessment and Plan: - See problem #1. - Will follow up with outpatient Urology. (3) Pyelonephritis of right kidney: Code(s): N12 - Tubulo-interstitial nephritis, not specified as acute or chronic Status: Acute Assessment and Plan: - See problem #1 (4) Splenic mass: Code(s): R16.1 - Splenomegaly, not elsewhere classified Status: Acute Assessment and Plan: - 14.5 cm cystic lesion of the spleen noted on CT today. - Continues to be asymptomatic. - Dr. Ozuna and he would like to see her in follow-up as an outpatient. - Lipase was checked for complaints of LUQ pain, and was negative. - Referred to Dr. Ozuna for follow up as outpatient. (5) Depression with anxiety: Code(s): F41.8 - Other specified anxiety disorders Status: Chronic Assessment and Plan: - Chronic only. Continue home medication. DS: Summary Hospital Course Reason for hospitalization: Sepsis Hospital Course: This 21 year old female patient was admitted to the hospital on 01/24/2022 after presenting to the emergency room with chills fever, flank pain and nausea. She had recently had UTI symptoms since the beginning of January and had been attempting to treat home independently. After approximately 3 weeks treating at home she began developing fevers and became systemically ill. Her primary care physician did prescribe her nitrofurantoin as an outpatient, however her symptoms progressed. In the emergency room she was found to have a right-sided pyelonephritis with a renal cyst versus abscess measuring 1.5 cm. She was admitted to the hospital for treatment of sepsis that she was meeting at that time as well as further evaluation and management with urology for pyelonephritis and renal abscess. Coincidentally a cyst was found on her spleen as well. General surgery consulted and wants to see patient in the outpatient setting for further follow-up. During patient's hospitalization she was treated with Rocephin 1 g IV piggyback Q 24 hours for urine that grew out Klebsiella pneumoniae, and she has now remained afebrile for the past 24 hours and with no complaints of pain or any other symptoms. She is stable for discharge today with Cipro 500 mg p.o. b.i.d. for 14 days as advised by Urology as sensitivities have shown that the Klebsiella is sensitive to Cipro. Referrals to Dr. Adam as well as Dr. Ozuna are made. Status at Discharge Functional status at discharge: independent ambulation Overall status at discharge: patient is progressing back to baseline Time Spent with Patient Time attestation: Total time spent providing and/or coordinating discharge services: Time spent: Greater than 30 minutes Specific discharge activities: Discussion of plan of care and diagnosis with it up discussion post hospitalization instructions. Exam Const: General: comfortable and no acute distress HENMT: Ears: TM's normal bilaterally General nose exam: Normal nares present and no epistaxis Mouth: Yes moist mucous membranes Eyes: General: appearance normal, both eyes and all related structures Sclera: sclerae normal and normal sclerae Pupils: Equal, round and reactive pupils present EOM: EOMs intact bilaterally
== END 2022-02-05 09:35 | disposition home or self-care (01) | DRG 690 ==
LOC: ANHED 14:46 → ANH3MEDSUR 15:06
PROVIDERS: Physician Assistant; Admitting Provider Chiropractor; Emergency Provider Emergency Medicine; PCP Family Medicine; Visit Provider Nurse Practitioner Adult Health
DX: N10 Acute pyelonephritis (principal); N15.1 Renal and perinephric abscess; B96.1 Klebsiella pneumoniae [K. pneumoniae] as the cause of diseases classified elsewhere; N28.1 Cyst of kidney, acquired; R16.1 Splenomegaly, not elsewhere classified; F41.8 Other specified anxiety disorders; Z20.822 Contact with and (suspected) exposure to COVID-19; Z86.16 Personal history of COVID-19
CPT/HCPCS: 36415; 71045; 74177; 76775; 80053; 81001; 81025; 83036; 83605; 83690; 83735; 85025; 85055; 87040; 87077; 87086; 87186; 96361; 96365; 96374; 96375; 96376; 99285; A9270; C9803; G0378; J0131; J0696; J1885; J2405; J7030; Q9967; U0003; U0005

== ENCOUNTER 2022-03-07 15:06 | Outpatient (CLI) | payer OTHER, SELFPAY ==
--- NOTE | ~2022-03-07 | US_ITS ---
EXAMINATION: US renal BI DATE: 03/07/2022 15:36 INDICATION: Right renal abscess TECHNIQUE: Multiple ultrasound grayscale images of the kidneys were obtained. COMPARISON: Renal ultrasound dated 02/03/[address] dated 02/02/2022 FINDINGS: The right kidney measures 9.5 x 4.6 x 4.0 cm. The left kidney measures 12.2 x 4.8 x 5.5 cm. The kidne ys demonstrate normal echogenicity. The small cystic lesion previously seen at the lower pole of the right kidney is no longer visualized which likely represents resolution of a prior small renal absces s. There is no hydronephrosis in either kidney. No stones identified. The bladder is normal with bila teral ureteral jets visualized on color Doppler. Incidentally noted is a 16.2 x 12.1 x 14.9 cm simple appearing anechoic cystic lesion in the spleen as seen on prior CT. IMPRESSION: 1. Normal kidneys without hydronephrosis. 2. 16.2 cm simple appearing cystic splenic lesion. Reviewed, dictated and finalized at location A.
== END 2022-03-07 15:07 | disposition home or self-care (01) ==
LOC: ANHIMG 15:07
PROVIDERS: PCP Family Medicine; Visit Provider Urology
DX: N15.1 Renal and perinephric abscess (principal)
CPT/HCPCS: 76775

== ENCOUNTER → 2022-04-09 13:28 | Outpatient (CLI) | payer OTHER, SELFPAY ==
--- NOTE | ~2022-04-09 | XR_ITS ---
XR abdomen/kub 1V 04/09/2022 13:51 INDICATION: Right lower quadrant pain TECHNIQUE: KUB COMPARISON: None FINDINGS: Bowel gas pattern is normal. Moderate colonic fecal loading. There is an IUD in the pelvis. There is no evidence of free air, mass, organomegaly, ascites or obstruction. No abnormal calculi a re seen. The bones appear intact. IMPRESSION: 1: No acute abdominal abnormality identified. Reviewed, dictated and finalized at location A.
--- NOTE | ~2022-04-09 | CT_ITS ---
EXAMINATION: CT abdomen pelvis wo con DATE: 04/09/2022 13:51 INDICATION: Right lower quadrant pain. History of recent UTI. TECHNIQUE: Computed tomography (CT) of the abdomen and pelvis was performed without intravenous contr ast. The dose-length product was 330.76 mGy-cm. Automated exposure control and iterative reconstructi on technique were employed. COMPARISON: CT dated 02/02/2022. FINDINGS: Lung bases are unremarkable. Heart size normal. No significant pleural or pericardial effus ion. Stable large splenic cyst measuring 14.5 cm. There are a few peripheral calcifications in the cy st. There are punctate nonobstructing right renal stones measuring 2 mm or less. The liver, pancreas, adrenal glands are unremarkable for noncontrast CT. There is an IUD in the uterus. Moderate colonic fecal loading. Nonobstructive bowel pattern. Small amount of free fluid in the pelvis. The appendix i s not positively visualized. There is no pericecal inflammatory change to suggest appendicitis. Th e stomach contains a large amount of debris. IMPRESSION: 1. No acute abdominal abnormality. No findings to account for symptoms. 2: Nonobstructing right nephrolithiasis. 3: Stable large splenic cyst measuring 14.5 cm. Reviewed, dictated and finalized at location A.
== END ==
PROVIDERS: PCP Family Medicine; Visit Provider Nurse Practitioner Adult Health
DX: R10.31 Right lower quadrant pain (principal); N20.0 Calculus of kidney; D73.4 Cyst of spleen
CPT/HCPCS: 74018; 74176

== ENCOUNTER 2022-06-22 09:55 | Outpatient (CLI) | payer OTHER, SELFPAY ==
--- NOTE | 2022-06-22 10:37 | ECG_ITS ---
Measurements Intervals [place] Rate: 75 P: 64 UT: 146 QRS: 66 QRSD: 98 T: 40 QT: 349 QTc: 392 Interpretive Statements SINUS RHYTHM NORMAL ECG NO PREVIOUS ECG AVAILABLE FOR COMPARISON Electronically Signed On 06-22-2022 16:40:06 [employer]OTEL SUPERINTENDENT by Marshall Jeffers M.D.
[2022-06-22 10:54] LABS: Basophils Percent Auto 0.6 % (0.2-1.2); Eosinophils Absolute Auto 0.1 K/mm3 (0-0.3); Eosinophils Percent Auto 2.1 % (0-4.4); Hematocrit 36.2 % (37.0-47.0); Hemoglobin 12.3 g/dL (12.0-15.0); Immature Granulocyte Absolute 0.01 K/mm3 (0.00-0.031); Immature Granulocyte Percent A 0.1 % (0-0.5); Lymphocytes Absolute Auto 1.87 K/mm3 (0.9-3.2); Lymphocytes Percent Auto 27.8 % (18.3-44.2); Mean Corpuscular Volume 88.3 fl (80-100); Mean Platelet Volume 9.3 fl (7.4-10.4); Monocytes Absolute Auto 0.6 K/mm3 (0.1-0.6); Monocytes Percent Auto 8.2 % (2.6-8.5); Neutrophils Absolute Auto 4.1 K/mm3 (1.3-6.7); Neutrophils Percent Auto 61.2 % (45.5-73.1); Platelet Count Result 187 k/mm3 (150-375); Red Cell Distribution Width 13.6 % (11.5-14.5); White Blood Count 6.7 K/mm3 (4.5-10.0)
== END 2022-06-22 09:56 | disposition home or self-care (01) ==
PROVIDERS: PCP Family Medicine; Visit Provider Surgery
DX: D73.4 Cyst of spleen (principal)
CPT/HCPCS: 36415; 85025; 86850; 86900; 86901; 93005

== ENCOUNTER 2022-07-07 12:12 | Observation (INO) | payer OTHER, SELFPAY ==
--- NOTE | 2022-06-22 09:49 | PC.NURSE ---
Addendum entered by Erica Ha RN 06/27/22 14:00: PT TO ARRIVE AT 1000 ON 07/06 FOR SURGERY AT 1200. MAXIMUM 20 OZ OF CLEAR LIQUIDS UNTIL 0900. Original Note: PRE-OP INSTRUCTIONS, PLEASE READ CAREFULLY Report to the Outpatient Waiting Room, entrance under the green pavilion located off [facility], at time _0600_ on date _06/27/22_. Planned Procedure Time: _0730_. PACK A SMALL OVERNIGHT BAG AND LEAVE IN THE CAR Time changes happen often and if your time is changed the preop area will call you the afternoon before. - You and your visitor will be asked to self-screen and do not enter if you have any COVID symptoms. - Only one visitor is requested with a max of two and NO children visitors are allowed at this time. - The patient visitor may be requested to leave or wait in car when not with patient due to distancing restrictions. - A mask is required within the hospital. -VISITING HOURS 8AM-8PM Patients may have clear liquids (water, carbonated beverages, clear teas, apple juice) until 3 hours prior to surgery (0430 AM) with a maximum of 20 ounces. - No food from midnight until time of surgery Take the following medications with a SIP of water the morning of surgery: _BUSPIRONE_ Medications to discontinue per physician ___N/A____, Date to take last dose Please no make-up, nail swedish, hairspray, perfume, deodorant, or body powder the day of surgery. No jewelry (including any body piercings) or valuables the day of surgery, leave them at home. Please take a shower or bath the night before, or the morning of, surgery with an antibacterial soap. Wear comfortable, loose fitting clothing. - Jewelry must be removed prior to entering the operating room. Rings and piercings that are not removed may be cut off. - The hospital will not accept responsibility for valuables. - Please leave all valuables, including medications, at home the day of surgery. If you are going home after surgery, a licensed trackless trolley driver must drive you home. - NO public transportation without another adult if you receive anesthesia. - We recommend that an adult stay with you for 24 hours following discharge. - We also recommend that you do not drive, make important decision, drink alcoholic beverages, or take any drugs that were not prescribed by your health care provider for at least 24 hours after your discharge time. Follow any additional instructions given to you from your surgeon. If you or anyone in your household have experienced Covid symptoms in the past week, please notify your surgeon or the nurse liaison at the phone number below for possible testing. Instructions given to _PATIENT & MOM (FAHEEM)_and asked if any additional questions and then verbalized understanding. Patient advised to call surgeon office or pre surgery nurse liaison [phone] if any additional questions.
[2022-06-22 10:15] VITALS: BP 106/72; PULSE 80; RESP 18; TEMP 37.3; O2SAT 100; BMI 22.1
--- NOTE | 2022-06-25 16:53 | PM.IMHP ---
H&P: HPI History of Present Illness Date/Time: 06/25/22 16:53 Chief Complaint: Large splenic cyst Narrative: patient is a 22-year-old woman who had right-sided pyelonephritis with the renal abscess and was admitted to the hospital in January. CT scan at that time not only showed the pyelonephritis an abscess but also a very large, 14.5 cm, splenic cyst. This was an incidental finding and asymptomatic. Patient was treated for her pyelonephritis and followed up with Urology after discharge. She was seen in the office in February. The cyst was asymptomatic at that time. She returned, however, in April now complaining of early satiety, protrusion in the left upper quadrant, discomfort in the left upper quadrant, and difficulty taking deep breaths. I discussed the possibility of image guided percutaneous drainage but Radiology did not feel that would be a satisfactory means of management. There would be risk of bleeding as well as recurrence. Large splenic cysts are quite rare and the only treatment recommendations are anecdotal. I discussed this with the patient and her father at her last office visit. She is taken to surgery now for hand access laparoscopic excision of large splenic cyst. Review of Systems Review of Systems: All systems reviewed & are unremarkable except as noted in HPI and below ( HPI and those items noted below) Constitutional: Constitutional: Denies chills and Denies fever(s) Cardiovascular: Cardiovascular: Denies chest pain, Denies diaphoresis, Denies dyspnea and Denies paroxysmal nocturnal dyspnea Respiratory: Respiratory: Denies chest congestion, Denies cough and Denies dyspnea Integumentary/Breasts: Skin/Breast: Denies lesions and Denies rash PMFSH Past Medical History Medical History (Updated 06/25/22 @ 17:02 by [place] Ozuna MD) COVID-19 (10/2021) Pyelonephritis of right kidney Urinary tract infection Surgical History Surgical History Brain tumor (benign) 2000, removal Breast mass, right removal of mass, right breast History of craniotomy (03/2001) Excision of benign brain tumor. History of right breast biopsy Family History Family History Mother Family history of thyroid disease Diabetes mellitus Family history of osteoporosis Depression Hypertension Family history of malignant neoplasm of breast in first degree relative Lung cancer Cerebrovascular accident Father Family history of migraine headaches Hypertension Other No significant family history Social History Social History Social History: Surrogate medical decision maker: Adrian Hawkins, father. Code status: Full code. Smoking status: Current every day smoker Tobacco type: e-cigarettes/vaping Additional smoking assessment comments: VAPES DAILY/1YR Alcohol intake: current Drinks per week: 2 Substance use: never Additional living arrangements comments: LIVES WITH PARENTS Additional occupation/education comments: [employer] Spiritual care concerns: No Meds Home Medications and Allergies Home Medications Medication Instructions Recorded Confirmed Type levonorgestrel 17.5 mcg/24 hrs 1 device intrauterine ONCE 02/06/22 06/22/22 History (5yrs) 19.5mg intrauterine device (Kyleena) sertraline 50 mg tablet 50 mg PO DAILY #90 tabs 03/20/22 06/22/22 Rx buspirone 5 mg tablet See Rx Instructions .Route 05/29/22 06/22/22 Rx .COMPLEX #90 tabs Allergies Allergy/AdvReac Type Severity Reaction Status Date / Time No Known Allergies Allergy Verified 06/22/22 10:12 Exam Const: General: comfortable, no acute distress, alert and awake HENMT: Head: normocephalic and atraumatic Mouth: Yes Normal oral and palatal mucosa present Eyes: Conjunctivae: conjunctivae normal Pupils: Equal, round and reactive
--- NOTE | 2022-06-26 21:16 | SUR.PREOP ---
This RN left a message on patient cell phone that case will be canceled for 06/27/[address] Ozuna is sick and patient should call office to reschedule.
--- NOTE | 2022-06-27 14:00 | PC.NURSE ---
Pt states no changes in medications or health history since initial interview. New pre-op instructions reviewed with pt. Pt denies further questions at this time.
[2022-07-06] VITALS (17 sets, daily range): BP systolic 100–135; BP diastolic 52–75; PULSE 66–98; RESP 10–18; TEMP 36.6–37.4; O2SAT 97–100
[2022-07-06] MEDS: ACETAMINOPHEN 500 MG TABLET 1000 MG PO (10:23)
[2022-07-06] MEDS: LACTATED RINGERS 1,000 ML 30 ML IV CONT ×3 (10:30→16:01)
[2022-07-06] MEDS: KETOROLAC 15 MG/ML VIAL (*BKC) IV PUSH (10:37)
--- NOTE | 2022-07-06 11:38 | WPDHPUPDATE1 ---
History and Physical Update Update Date/Time: 07/06/22 11:38 History and Physical has been reviewed, including an updated exam of the patient. There are NO changes in the patient's condition. Risks, benefits, and alternatives have been discussed and questions answered. Patient agrees to proceed with procedure.
--- NOTE | 2022-07-06 11:39 | WPDANESEPPF ---
Anes - Initial Pre Proc Eval Procedure: Operation Date: 07/06/22 12:00 Proposed Procedures p Hand Access Laparoscopic Resection of Splenic Cyst - Cuba Ozuna MD Date/Time: 07/06/22 11:39 Surgeon: Cuba Ozuna MD Pre Op Diagnosis: Splenic Cyst Patient Data Age: 22 Gender: F Height: 1.63 m Weight: 56 kg Last Vital Signs Temp 97.8 F 07/06/22 10:08 Pulse 79 07/06/22 10:08 Resp 16 07/06/22 10:08 BP 118/74 07/06/22 10:08 Pulse Ox 100 07/06/22 10:08 O2 Del Method Room Air 07/06/22 10:08 Allergies Allergy/AdvReac Type Severity Reaction Status Date / Time No Known Allergies Allergy Verified 07/06/22 10:20 Home Medications Medication Instructions Recorded Confirmed Type levonorgestrel 17.5 mcg/24 hrs 1 device intrauterine ONCE 02/06/22 06/27/22 History (5yrs) 19.5mg intrauterine device (Kyleena) sertraline 50 mg tablet 50 mg PO DAILY #90 tabs 03/20/22 07/06/22 Rx buspirone 5 mg tablet See Rx Instructions .Route 05/29/22 07/06/22 Rx .COMPLEX #90 tabs Laboratory Tests 07/06/22 10:19 Blood Type A Positive Antibody Screen Negative Patient hx anesthesia problems: none Family hx anesthesia problems: none Results Review: All pre-operative results and documents have been reviewed as part of the pre-operative evaluation. FORMERLY [facility] Past Medical History Medical History (Updated 06/25/22 @ 17:02 by Cuba Ozuna MD) COVID-19 (10/2021) Pyelonephritis of right kidney Urinary tract infection Surgical History Surgical History Brain tumor (benign) 2000, removal Breast mass, right removal of mass, right breast History of craniotomy (03/2001) Excision of benign brain tumor. History of right breast biopsy Family History Family History Mother Family history of thyroid disease Diabetes mellitus Family history of osteoporosis Depression Hypertension Family history of malignant neoplasm of breast in first degree relative Lung cancer Cerebrovascular accident Father Family history of migraine headaches Hypertension Other No significant family history Social History Social History Social History: Surrogate medical decision maker: Adrian Hawkins, father. Code status: Full code. 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 Informed Consent: The patient's anesthetic plan and its attendant risks and benefits were discussed with the patient/family/POA. Questions were solicited and answers provided to the satisfaction of the patient/family/POA.
[2022-07-06] MEDS: ceFAZolin 2 GM/D5W 50 ML 2 GM/50 ML BAG IVPB (12:00)
[2022-07-06] MEDS: BUPIVACAINE/EPINEPHRINE 0.5% 10 ML VIAL 40 ML INFILTRATE (13:22)
[2022-07-06] MEDS: CELLULOSE OXIDIZED 2 x 14 INCH 1 PKT XX (13:37)
--- NOTE | 2022-07-06 14:59 | W.PM.PROC2 ---
Procedure Note - Detailed Date of Procedure 07/06/22 Pre-op Diagnosis Splenic Cyst Post-op Diagnosis Same Procedure Performed Hand access laparoscopic resection of large splenic cyst Surgeon Cuba Ozuna MD Tank Refinisher Enrique MARTÍNEZ Anesthesia General and Local (0.5% Marcaine with epinephrine) Indications Patient was noted to have a large splenic cyst on a CT scan done for evaluation of pyelonephritis. It was at that time asymptomatic. More recently she has been having symptoms of early satiety left upper quadrant discomfort and difficulty taking a deep breath. Repeat CT scan showed no significant changes in the cyst. By imaging criteria, it is not a parasitic or neoplastic cyst. There is no history of trauma. She is taken to surgery now for and access laparoscopic excision of very large splenic cyst. Findings Around 1200 cc of bloody cyst fluid was drained from the cyst. Some of the cyst wall was avascular and leathery. There was no evidence of a parasitic infection. The cyst was 95% removed with the surgery without removal of any splenic tissue. Description of Procedure Patient was taken to surgery and induced into general anesthesia. The abdomen is prepped and draped. All trocars were placed after 1st infiltrating local anesthetic. Our 1st trocar was just above the umbilicus. After local was infiltrated a small incision was made. The varies needle was introduced. Intraperitoneal location was verified by saline drop technique. The abdomen was insufflated and then an applied Medical optical 5 mm port was placed. This showed intraperitoneal location. The cyst was observed and of course was extremely large. Another 5 mm port was placed in the right upper quadrant. This was done under direct visualization. Following this I attempted to place the Lis retractor such that the lateral segment of the left lobe of the liver could be elevated. We placed the pole and attached to the bed. I then made another incision in the epigastric area. I was able to pass the Lis into the abdomen but due to the patient's small abdominal cavity in the large cyst I was never able to orient the retractor such that I could adequately elevate the lateral segment of the left lobe of the liver. It was starting to cause injury to the lateral segment of the left lobe so I abandoned this and removed the Lis retractor. Was then able to place another 5 mm port in the left lower quadrant. We moved the camera there. I then used laparoscopic aspirator and inserted it into 1 of the clear areas that was obviously cyst. We then proceeded to evacuate nearly all the cyst contents. About 1100 cc was withdrawn of serosanguineous fluid that was fairly thick. The cyst collapsed accordingly. Some laparoscopic photographs were taken at this point. It appeared that there was splenic lining around the outer aspects of the cyst. I did not see it would be feasible to safely remove the cyst I proceeding entirely laparoscopic. I then decided to go ahead and place a hand access port in the left subcostal position. I marked the proposed incision on the skin. I infiltrated local into the skin and the deeper subcutaneous tissues. The muscular tissues were also infiltrated. Incision was made and then we dissected down through the subcutaneous. We divided the lateral aspect of the left rectus and also the external oblique. We continued dissecting and eventually entered the peritoneal cavity. The Sukhdeep wound guard was then placed. The GelPort was placed. With the hand in the abdomen I then exposed the short gastric vessels connecting to the upper aspect of the stomach and spleen. Using the LigaSure, I divided each of these and mobilized the spleen. There were a few other splenic ligaments such as the gastrosplenic ligament that was divided. The cystic been taking up so much room in the left upper quadrant, that once it was decompressed. The spleen was actually fairly mo
[2022-07-06] MEDS: fentaNYL CITRATE INJ (*CRX) 100 MCG/2 ML VIAL 25 MCG IV PUSH ×2 (15:15→15:52)
--- NOTE | 2022-07-06 16:13 | SUR.PHASEI ---
called the floor at 1600 no room available yet. will continue to monitor. vss pt calm and cooperative. no complaints at this time.
--- NOTE | 2022-07-06 17:23 | ADMGEN ---
This patient, Mimi Hawkins, was admitted to Medical Room 251-01. Patient/family oriented to hospital policies and general routines including ID bracelet, bed and alarms, visiting hours, pain management, procedures, bathroom and other care routines, personal items, smoking policy, room service/diet, and visiting hours. Information on how to activate the Rapid Response Team has been discussed. Patient/Family are encouraged to report perceived risks to care and to ask questions if they do not understand what they are told or what they should do.
[2022-07-06] MEDS: LACTATED RINGERS 1,000 ML 100 ML IV CONT (17:39)
[2022-07-06] MEDS: MORPHINE SULFATE (*CRX) 2 MG/ML INJ IV PUSH (17:44)
[2022-07-06] MEDS: MORPHINE SULFATE (*CRX) 4 MG/ML INJ IV PUSH (19:49)
[2022-07-06] MEDS: SERTRALINE HCL 50 MG TABLET PO (21:11)
[2022-07-06] MEDS: HYDROcodone/acetaminophen (*CRX) 10-325 MG TABLET 1 TAB PO (21:11)
[2022-07-07] VITALS (8 sets, daily range): BP systolic 101–113; BP diastolic 49–62; PULSE 79–91; RESP 16–20; TEMP 36.4–37.2; O2SAT 97–99
[2022-07-07] MEDS: MORPHINE SULFATE (*CRX) 4 MG/ML INJ IV PUSH ×2 (01:03→10:07)
[2022-07-07] MEDS: HYDROcodone/acetaminophen (*CRX) 10-325 MG TABLET 1 TAB PO ×2 (05:35→17:04)
[2022-07-07 05:56] LABS: Hematocrit 34.5 % (37.0-47.0); Hemoglobin 11.6 g/dL (12.0-15.0); Mean Corpuscular HGB Conc 33.6 g/dl (32-36); Mean Corpuscular Hemoglobin 29.4 pg (26-34); Mean Corpuscular Volume 87.3 fl (80-100); Mean Platelet Volume 9.8 fl (7.4-10.4); Platelet Count Result 201 k/mm3 (150-375); Red Blood Count 3.95 M/mm3 (4.2-5.4); Red Cell Distribution Width 13.2 % (11.5-14.5); White Blood Count 9.6 K/mm3 (4.5-10.0)
[2022-07-07 06:06] LABS: Anion Gap 3 mmol/L (8-16); Blood Urea Nitrogen 13 mg/dL (7-17); Calcium 8.3 mg/dL (8.4-10.2); Carbon Dioxide 27 mmol/L (22-30); Chloride 105 mmol/L (98-107); Estimated CRCL calculation 108 ml/min; Estimated Glomerular Filt Rate > 60; Glucose 100 mg/dL (65-110); Potassium 3.8 mmol/L (3.4-5.0); Sodium 135 mmol/L (137-145)
[2022-07-07] MEDS: MORPHINE SULFATE (*CRX) 2 MG/ML INJ IV PUSH (06:21)
--- NOTE | 2022-07-07 06:57 | WPDANESPN ---
Anes - Prog Note Post-Op Date/Time: 07/07/22 06:57 Cardiovascular status: normal Respiratory status: normal Airway patency: baseline Mental status: baseline Post-Op hydration status: normal Vital Signs: Last Vital Signs Temp 98.9 F 07/07/22 06:55 Pulse 90 07/07/22 06:55 Resp 16 07/07/22 06:55 BP 110/53 L 07/07/22 06:55 Pulse Ox 97 07/07/22 06:55 O2 Del Method Room Air 07/06/22 20:00 O2 Flow Rate 6 07/06/22 14:38 Pain Score (VAS): 0/10 I/O: Intake & Output 07/06/22 07/06/22 07/07/22 15:59 23:59 07:59 Intake Total 003 468 9890 Output Total 600 300 Balance 350 -80 1050 Laboratory Tests 07/07/22 05:22 07/07/22 05:22 07/06/22 07/07/22 07/07/22 10:19 05:22 05:22 WBC 9.6 RBC 3.95 L Hgb 11.6 L Hct 34.5 L MCV 87.3 MCH 29.4 MCHC 33.6 RDW 13.2 Plt Count 201 MPV 9.8 Sodium 135 L Potassium 3.8 Chloride 105 Carbon Dioxide 27 Anion Gap 3 L BUN 13 D Creatinine 0.60 L Estim Creat Clear Calc 108 Estimated GFR > 60 Glucose 100 Calcium 8.3 L Blood Type A Positive Antibody Screen Negative Post-procedural complaints: none Patient Feedback: Patient satisfied with anesthetic care.
[2022-07-07] MEDS: ENOXAPARIN 40 MG/0.4 ML SYRINGE SUB-Q (08:32)
--- NOTE | 2022-07-07 12:46 | PM.PNGS ---
Progress Note: A&P Assessment and Plan (1) Splenic cyst: Code(s): D73.4 - Cyst of spleen Status: Chronic Assessment and Plan: Doing okay postop day 1. She is having quite a bit of pain which is not unexpected. I went over the pictures of the cyst that were taken intraoperatively. I recommended that she use her pain medication more frequently. Will recheck labs and exam again tomorrow. Up walking up in chair some today too. Subjective Subjective Date/Time Seen: 07/07/22 12:46 Patient reports: still having pain (Mostly at hand access port left subcostal), no flatus, no bowel movement, nausea and afebrile Exam Const: General: cooperative, no acute distress, alert, awake and uncomfortable Nutritional Appearance: well nourished GI: Inspection: non-distended and incision (All incisions dry and healing well) GI Palp: Yes abdominal tenderness and Yes Soft to palpation Auscultation: absent bowel sounds Objective Data Vital Signs Vital Signs: Vital Signs - 24 hr 07/06/22 14:38 07/06/22 15:00 07/06/22 15:15 Temperature Pulse Rate 92 78 77 Respiratory Rate 10 L 13 14 Blood Pressure 102/59 L 100/75 100/54 L Pulse Oximetry 100 100 100 Oxygen Delivery Simple Face Mask Room Air Room Air Oxygen Flow Rate 6 07/06/22 14:45 07/06/22 15:30 07/06/22 15:45 Temperature Pulse Rate 77 66 66 Respiratory Rate 14 14 12 Blood Pressure 100/64 105/70 104/70 Pulse Oximetry 100 100 100 Oxygen Delivery Room Air Room Air Room Air Oxygen Flow Rate 07/06/22 16:00 07/06/22 16:20 07/06/22 16:40 Temperature Pulse Rate 96 73 76 Respiratory Rate 16 16 14 Blood Pressure 104/64 105/74 108/62 Pulse Oximetry 100 99 98 Oxygen Delivery Room Air Room Air Room Air Oxygen Flow Rate 07/06/22 16:55 07/06/22 17:10 07/06/22 18:05 Temperature Pulse Rate 98 98 Respiratory Rate 18 18 Blood Pressure 107/62 110/62 Pulse Oximetry 98 98 Oxygen Delivery Room Air Room Air Room Air Oxygen Flow Rate 07/06/22 17:30 07/06/22 17:45 07/06/22 18:01 Temperature 36.6 C 36.6 C 36.6 C Pulse Rate 78 78 74 Respiratory Rate 18 18 16 Blood Pressure 106/52 L 106/52 L 105/59 L Pulse Oximetry 97 97 98 Oxygen Delivery Oxygen Flow Rate 07/06/22 19:01 07/06/22 20:00 07/06/22 23:01 Temperature 36.6 C 37.4 C Pulse Rate 80 75 Respiratory Rate 16 16 Blood Pressure 110/60 135/60 Pulse Oximetry 98 100 Oxygen Delivery Room Air Oxygen Flow Rate 07/07/22 03:01 07/07/22 06:55 07/07/22 10:34 Temperature 37.1 C 37.2 C 37.1 C Pulse Rate 90 90 88 Respiratory Rate 16 16 16 Blood Pressure 111/49 L 110/53 L 101/55 L Pulse Oximetry 97 97 99 Oxygen Delivery Oxygen Flow Rate 07/07/22 08:31 Temperature Pulse Rate Respiratory Rate Blood Pressure Pulse Oximetry Oxygen Delivery Room Air Oxygen Flow Rate Intake/Output Intake/Output: Intake & Output 07/04/22 07/05/22 07/06/22 07/07/22 23:59 23:59 23:59 23:59 Intake Total 870 1550 Output Total 600 300 Balance 270 1250 Meds/Results Medications: Active Medications Generic Name Dose Route Start Last Admin Trade Name Freq PRN Reason Stop Dose Admin Acetaminophen 500 mg 07/06/22 17:16 Acetaminophen 500 Mg Tablet PO Q6H PRN Mild Pain (1-3) or Fever Hydrocodone Bitart/Acetaminophen 1 tab 07/06/22 17:16 Hydrocodone/Acetaminophen (*Crx) 5-325 Mg Tablet PO Q4H PRN Pain Rated 4-6 Hydrocodone Bitart/Acetaminophen 1 tab 07/06/22 17:16 07/07/22 05:35 Hydrocodone/Acetaminophen (*Crx) 10-325 Mg Tablet PO 1 tab Q6H PRN Administration Pain Rated 7-10 Buspirone HCl 0 mg 07/06/22 17:16 Buspirone Hcl 5 Mg Tablet BY MOUTH .COMPLEX MARTY Enoxaparin Sodium 40 mg 07/07/22 09:00 07/07/22 08:32 Enoxaparin 40 Mg/0.4 Ml Syringe SUB-Q 40 mg DAILY MARTY Administration Ibuprofen 800 mg in 200 mls @ 400 mls/hr 07/06/22 17:16 Caldolor 800 Mg/200 Ml IVPB Q6H PRN
[2022-07-07] MEDS: IBUPROFEN IV 800 MG/200 ML 800 MG/200 ML BAG 400 MG IVPB (13:14)
[2022-07-07] MEDS: busPIRone HCL 10 MG TABLET BY MOUTH (17:04)
[2022-07-07] MEDS: IBUPROFEN IV 800 MG/200 ML 800 MG/200 ML BAG 150 MG IVPB (17:05)
[2022-07-07] MEDS: SERTRALINE HCL 50 MG TABLET PO (20:33)
[2022-07-08] MEDS: IBUPROFEN IV 800 MG/200 ML 800 MG/200 ML BAG 200 MG IVPB ×2 (00:03→06:07)
[2022-07-08 02:00] VITALS: BP 101/57; PULSE 111; RESP 16; TEMP 36.2; O2SAT 93
[2022-07-08 05:29] LABS: Hematocrit 31.3 % (37.0-47.0); Hemoglobin 10.6 g/dL (12.0-15.0); Mean Corpuscular HGB Conc 33.9 g/dl (32-36); Mean Corpuscular Hemoglobin 29.9 pg (26-34); Mean Corpuscular Volume 88.2 fl (80-100); Mean Platelet Volume 9.1 fl (7.4-10.4); Platelet Count Result 169 k/mm3 (150-375); Red Blood Count 3.55 M/mm3 (4.2-5.4); Red Cell Distribution Width 13.2 % (11.5-14.5); White Blood Count 11.6 K/mm3 (4.5-10.0)
[2022-07-08 05:55] LABS: Anion Gap 4 mmol/L (8-16); Blood Urea Nitrogen 9 mg/dL (7-17); Carbon Dioxide 26 mmol/L (22-30); Chloride 106 mmol/L (98-107); Estimated CRCL calculation 127 ml/min; Estimated Glomerular Filt Rate > 60; Glucose 99 mg/dL (65-110); Sodium 136 mmol/L (137-145)
[2022-07-08 06:00] VITALS: BP 108/62; PULSE 84; RESP 18; TEMP 36.7; O2SAT 97
[2022-07-08] MEDS: ENOXAPARIN 40 MG/0.4 ML SYRINGE SUB-Q (08:03)
[2022-07-08] MEDS: busPIRone HCL 10 MG TABLET BY MOUTH ×2 (08:03→17:21)
--- NOTE | 2022-07-08 11:01 | PM.PNGS ---
Progress Note: A&P Assessment and Plan (1) Splenic cyst: Code(s): D73.4 - Cyst of spleen Status: Chronic Assessment and Plan: Improving postop day 2 status post splenic cyst resection. Pain is better. Tolerating low-fiber diet. Increase ambulation. Continue inpatient care. (2) Anemia: Code(s): D64.9 - Anemia, unspecified Status: Acute Assessment and Plan: H&H slowly decreasing. No problems with blood pressure or tachycardia to suggest bleeding. Exam does not suggest bleeding. Probably this is due to dilutional effects. She is slightly edematous as well. Will give a dose of Bumex today. Continue to monitor CBC and BMP. Subjective Subjective Date/Time Seen: 07/08/22 11:01 Post Op day: 2 Patient reports: no new complaints, pain is less, tolerating liquids well, no bowel movement and afebrile Exam Const: General: comfortable and no acute distress; No confusion Nutritional Appearance: edematous Orientation/consciousness: patient oriented x3 and No confusion Resp: Effort & Inspection: normal respiratory effort Auscultation: no rales, no rhonchi, no wheezes and diminished lung sounds on the left in the lower lung ortega Cardio: Rate: regular rate Rhythm: regular rhythm GI: Inspection: non-distended, incision (Dry and healing well) and scaphoid GI Palp: Yes Soft to palpation, Yes Tenderness to palpation present (GI), No Guarding due to palpation present (GI) and No Rebound tenderness present Auscultation: normal bowel sounds Neuro: General: patient oriented x3, no focal motor deficits and No confusion Extrem: General: no calf tenderness and edema (Slightly edematous throughout) Psych: Affect: normal affect Insight: Good insight present (Psych) Judgement: Good judgement present (Psych) Objective Data Vital Signs Vital Signs: Vital Signs - 24 hr 07/07/22 13:27 07/07/22 15:26 07/07/22 18:13 Temperature 36.5 C 36.9 C 36.4 C Pulse Rate 91 79 Respiratory Rate 16 18 Blood Pressure 102/55 L 105/62 Pulse Oximetry 98 97 Oxygen Delivery 07/07/22 19:58 07/07/22 22:25 07/08/22 02:00 Temperature 36.9 C 36.2 C L Pulse Rate 79 81 111 H Respiratory Rate 18 20 16 Blood Pressure 113/61 101/57 L Pulse Oximetry 97 99 93 Oxygen Delivery Room Air 07/08/22 06:00 07/08/22 08:05 Temperature 36.7 C Pulse Rate 84 Respiratory Rate 18 Blood Pressure 108/62 Pulse Oximetry 97 Oxygen Delivery Room Air Intake/Output Intake/Output: Intake & Output 07/05/22 07/06/22 07/07/22 07/08/22 23:59 23:59 23:59 23:59 Intake Total 870 3180 1420 Output Total 600 1700 2100 Balance 270 1480 -680 Meds/Results Medications: Active Medications Generic Name Dose Route Start Last Admin Trade Name Freq PRN Reason Stop Dose Admin Acetaminophen 500 mg 07/06/22 17:16 Acetaminophen 500 Mg Tablet PO Q6H PRN Mild Pain (1-3) or Fever Hydrocodone Bitart/Acetaminophen 1 tab 07/06/22 17:16 Hydrocodone/Acetaminophen (*Crx) 5-325 Mg Tablet PO Q4H PRN Pain Rated 4-6 Hydrocodone Bitart/Acetaminophen 1 tab 07/06/22 17:16 07/07/22 17:04 Hydrocodone/Acetaminophen (*Crx) 10-325 Mg Tablet PO 1 tab Q6H PRN Administration Pain Rated 7-10 Buspirone HCl 10 mg 07/07/22 17:00 07/08/22 08:03 Buspirone Hcl 10 Mg Tablet BY MOUTH 10 mg BID MARTY Administration Enoxaparin Sodium 40 mg 07/07/22 09:00 07/08/22 08:03 Enoxaparin 40 Mg/0.4 Ml Syringe SUB-Q 40 mg DAILY MARTY Administration Ibuprofen 800 mg in 200 mls @ 400 mls/hr 07/07/22 13:00 07/08/22 06:07 Caldolor 800 Mg/200 Ml IVPB 200 mls/hr Q6HR MARTY Administration Morphine Sulfate 2 mg 07/06/22 17:16 07/07/22 06:21 Morphine Sulfate (*Crx) 2 Mg/Ml Inj IV PUSH 2 mg Q2H PRN Administration Pain Rated 4-6 Morphine Sulfate 4 mg 07/06/22 17:16 07/07/22 10:07 Morphine Sulfate (*Crx) 4 Mg/Ml Inj IV PUSH 4 mg Q2H PRN Administration Pain
[2022-07-08] MEDS: BUMETANIDE INJ 1 MG/4 ML VIAL 2 MG IV PUSH (12:30)
[2022-07-08] MEDS: POTASSIUM CHLORIDE 20 MEQ TABLET 40 MEQ PO (12:30)
[2022-07-08] MEDS: HYDROcodone/acetaminophen (*CRX) 10-325 MG TABLET 1 TAB PO ×2 (12:30→20:12)
[2022-07-08 14:23] VITALS: BP 105/62; PULSE 104; RESP 12; TEMP 36.7; O2SAT 97
[2022-07-08] MEDS: MORPHINE SULFATE (*CRX) 4 MG/ML INJ IV PUSH (17:22)
[2022-07-08] MEDS: POTASSIUM CHLORIDE 20 MEQ TABLET.ER PO (17:22)
[2022-07-08] MEDS: SERTRALINE HCL 50 MG TABLET PO (20:12)
[2022-07-08 22:07] VITALS: BP 105/60; PULSE 106; RESP 21; TEMP 36.6; O2SAT 100
[2022-07-09 01:45] VITALS: BP 106/52; PULSE 92; RESP 20; TEMP 36.3; O2SAT 98
[2022-07-09 05:42] LABS: Anion Gap 5 mmol/L (8-16); Blood Urea Nitrogen 9 mg/dL (7-17); Calcium 8.3 mg/dL (8.4-10.2); Carbon Dioxide 26 mmol/L (22-30); Chloride 99 mmol/L (98-107); Estimated CRCL calculation 108 ml/min; Estimated Glomerular Filt Rate > 60; Glucose 105 mg/dL (65-110); Potassium 3.9 mmol/L (3.4-5.0); Sodium 130 mmol/L (137-145)
[2022-07-09 05:45] LABS: Hematocrit 30.7 % (37.0-47.0); Hemoglobin 10.5 g/dL (12.0-15.0); Mean Corpuscular HGB Conc 34.2 g/dl (32-36); Mean Corpuscular Hemoglobin 29.2 pg (26-34); Mean Corpuscular Volume 85.5 fl (80-100); Mean Platelet Volume 10.5 fl (7.4-10.4); Platelet Count Result 145 k/mm3 (150-375); Red Blood Count 3.59 M/mm3 (4.2-5.4); White Blood Count 9.9 K/mm3 (4.5-10.0)
[2022-07-09 06:00] VITALS: BP 105/61; PULSE 97; RESP 18; TEMP 36.4; O2SAT 95
[2022-07-09 09:46] VITALS: RESP 18; O2SAT 95
[2022-07-09] MEDS: ENOXAPARIN 40 MG/0.4 ML SYRINGE SUB-Q (09:46)
[2022-07-09] MEDS: POTASSIUM CHLORIDE 20 MEQ TABLET.ER PO (09:47)
[2022-07-09] MEDS: busPIRone HCL 10 MG TABLET BY MOUTH (09:47)
[2022-07-09] MEDS: HYDROcodone/acetaminophen (*CRX) 10-325 MG TABLET 1 TAB PO (09:56)
--- NOTE | 2022-07-09 12:07 | PM.DS ---
DS: Admitting Diagnosis Discharge Date 07/09/2022 Admitting Diagnosis large symptomatic splenic cyst DS: Discharge Diagnosis Discharge Diagnosis (1) Splenic cyst: Code(s): D73.4 - Cyst of spleen Status: Chronic Assessment and Plan: status post hand access laparoscopic resection of splenic cyst 07/06/[address] Ozuna (2) Anemia: Code(s): D64.9 - Anemia, unspecified Status: Acute Assessment and Plan: postoperative, likely dilutional. Asymptomatic. No transfusion required. CBC will be recheck as an outpatient. No evidence postoperative bleeding DS: Summary Hospital Course Hospital Course: patient is a 22-year-old woman who was noted to have a large splenic cyst on a CT scan done for pyelonephritis. This was an incidental finding and initially was asymptomatic earlier this fall. She did however go on to develop symptoms of early satiety, left upper quadrant discomfort, and difficulty taking a deep breath. After thorough discussion, she was taken to surgery on 07/06/2022. Hand access laparoscopic resection of the splenic cyst was carried out. It was a very large cyst. 1200 cc of mostly sanguinous fluid was drained before the cyst was removed. The procedure went well. Postoperatively the patient had expected postoperative pain. She improved over each day. She was gradually able to tolerate solid food. She was comfortable on oral analgesics and ambulating independently on the day of discharge, postoperative day 3. She was anemic but this was stable after some diuresis on postop day 2. She will have a follow-up CBC done as an outpatient in 2 days. She had no clinical findings to suggest postoperative bleeding. She is discharged at this time doing quite well. Time spent discussing smoking cessation with patient: 3 to 10 minutes Status at Discharge Overall status at discharge: patient is progressing back to baseline Time Spent with Patient Time attestation: Total time spent providing and/or coordinating discharge services: Time spent: Less than 30 minutes Exam Const: General: comfortable and no acute distress; No confusion Nutritional Appearance: well nourished Orientation/consciousness: patient oriented x3 and No confusion GI: Inspection: non-distended, incision ( Dry and healing well) and scaphoid GI Palp: Yes Soft to palpation, Yes Tenderness to palpation present (GI) ( appropriate mild tenderness), No Guarding due to palpation present (GI) and No Rebound tenderness present Auscultation: normoactive bowel sounds Neuro: General: patient oriented x3, no focal motor deficits and No confusion Extrem: General: no calf tenderness and no edema Psych: Affect: normal affect Insight: Good insight present (Psych) Judgement: Good judgement present (Psych) DS: Data Data Completed and Pending Pending studies at discharge: Pending at discharge 07/06/22 13:25 Surgical [PTH] Routine Labs on day of discharge: Labs from last 24 hours 07/09/22 07/09/22 05:05 05:04 WBC 9.9 RBC 3.59 L Hgb 10.5 L Hct 30.7 L MCV 85.5 MCH 29.2 MCHC 34.2 RDW 13.0 Plt Count 145 L MPV 10.5 H Sodium 130 L Potassium 3.9 Chloride 99 Carbon Dioxide 26 Anion Gap 5 L BUN 9 Creatinine 0.60 L Estim Creat Clear Calc 108 Estimated GFR > 60 Glucose 105 Calcium 8.3 L Discharge Plan Discharge Attending physician on discharge: Cuba Ozuna Discharging Clinician: [place] Ozuna Anticipated Discharge Date/Time: 07/09/22 12:13 Patient Disposition: Home, Self-Care Activity: may shower, no straining and as tolerated Diet: as tolerated and regular Wound Care Instructions: incision open to air Discharge Instructions: Ambulate 3-4 x per day and as tolerated. No lifting over 15-20lbs. May bathe or shower. Stairs are OK. May drive a car in 3 days. continue to take deep breaths cough and use a spirometer regularly at
== END 2022-07-09 13:40 | disposition home or self-care (01) ==
LOC: ANHSURGERY 07-08 12:21 → ANH2MED 07-08 12:21
PROVIDERS: Admitting Provider Surgery; PCP Family Medicine; Visit Provider Surgery
PROC: 0DV44ZZ Restriction of Esophagogastric Junction, Percutaneous Endoscopic Approach (ICD-10-PCS; CPT 43281; principal; 2022-07-06 12:00)
DX: D73.4 Cyst of spleen (principal); R06.02 Shortness of breath; R68.81 Early satiety; D64.9 Anemia, unspecified; F10.90 Alcohol use, unspecified, uncomplicated; F17.290 Nicotine dependence, other tobacco product, uncomplicated; Z86.16 Personal history of COVID-19; Z87.440 Personal history of urinary (tract) infections; Z79.899 Other long term (current) drug therapy
CPT/HCPCS: 49322; 36415; 80048; 85027; 86850; 86900; 86901; 88305; A9270; G0378; J0690; J1100; J1170; J1650; J1741; J1885; J2250; J2270; J2370; J2405; J2704; J2710; J3010; J7030; J7120

== ENCOUNTER 2022-07-11 15:54 | Outpatient (CLI) | payer OTHER, SELFPAY ==
[2022-07-11 16:06] LABS: Hematocrit 32.2 % (37.0-47.0); Hemoglobin 10.9 g/dL (12.0-15.0); Mean Corpuscular HGB Conc 33.9 g/dl (32-36); Mean Corpuscular Hemoglobin 30.1 pg (26-34); Platelet Count Result 259 k/mm3 (150-375); Red Blood Count 3.62 M/mm3 (4.2-5.4); Red Cell Distribution Width 13.1 % (11.5-14.5); White Blood Count 4.7 K/mm3 (4.5-10.0)
== END 2022-07-11 15:55 | disposition home or self-care (01) ==
LOC: ANHLAB 15:56
PROVIDERS: PCP Family Medicine; Visit Provider Surgery
DX: D64.9 Anemia, unspecified (principal)
CPT/HCPCS: 36415; 85027

== ENCOUNTER 2024-06-25 13:06 | Outpatient (CLI) | payer OTHER, SELFPAY ==
[2024-06-25 19:47] LABS: Basophils Absolute Auto 0.1 K/mm3 (0.0-0.1); Basophils Percent Auto 0.8 % (0.2-1.2); Eosinophils Absolute Auto 0.1 K/mm3 (0-0.3); Eosinophils Percent Auto 2.2 % (0-4.4); Hematocrit 38.2 % (37.0-47.0); Hemoglobin 12.5 g/dL (12.0-15.0); Immature Granulocyte Absolute 0.01 K/mm3 (0.00-0.031); Immature Granulocyte Percent A 0.2 % (0-0.5); Lymphocytes Absolute Auto 2.22 K/mm3 (0.9-3.2); Lymphocytes Percent Auto 34.4 % (18.3-44.2); Mean Corpuscular HGB Conc 32.7 g/dl (32-36); Mean Corpuscular Hemoglobin 29.3 pg (26-34); Mean Corpuscular Volume 89.7 fl (80-100); Mean Platelet Volume 10.1 fl (7.4-10.4); Monocytes Absolute Auto 0.4 K/mm3 (0.1-0.6); Monocytes Percent Auto 6.4 % (2.6-8.5); Neutrophils Absolute Auto 3.6 K/mm3 (1.3-6.7); Platelet Count Result 326 k/mm3 (150-375); Red Blood Count 4.26 M/mm3 (4.2-5.4); Red Cell Distribution Width 13.5 % (11.5-14.5); White Blood Count 6.5 K/mm3 (4.5-10.0)
[2024-06-25 20:00] LABS: Alanine Aminotransferase 20 U/L (6-35); Albumin Level 4.4 g/dL (3.5-5.1); Alkaline Phosphatase 62 U/L (38-126); Anion Gap 4 mmol/L (4-12); Aspartate Amino Transferase 73 U/L (14-36); Bilirubin,Total 0.4 mg/dL (0.2-1.3); Blood Urea Nitrogen 16 mg/dL (7-17); Calcium 9.5 mg/dL (8.4-10.2); Carbon Dioxide 29 mmol/L (22-30); Chloride 108 mmol/L (98-107); Cholesterol 176 mg/dL (0-200); Estimated Glomerular Filt Rate > 60; Glucose 82 mg/dL (65-110); HDL Direct 50 mg/dL; Potassium 4.2 mmol/L (3.4-5.0); Sodium 141 mmol/L (137-145); Triglycerides 63 mg/dL (<150)
[2024-06-25 20:12] LABS: LDL Cholesterol Direct 84 mg/dL
== END 2024-06-25 13:07 | disposition home or self-care (01) ==
LOC: ANHGOSHLAB 13:07
PROVIDERS: PCP Family Medicine; Visit Provider Family Medicine
DX: D64.9 Anemia, unspecified (principal); F41.8 Other specified anxiety disorders; Z00.00 Encounter for general adult medical examination without abnormal findings
CPT/HCPCS: 36415; 80053; 80061; 82607; 82728; 84443; 85025